=== PATIENT | female | born 2000 | race Caucasian/White ===

== ENCOUNTER 2023-06-01 01:05 | Emergency (ER) | payer OTHER ==
[2023-06-01 01:20] VITALS: BP 123/77; PULSE 75; RESP 18; TEMP 98.3; BMI 30.7
[2023-06-01] MEDS ORDERED: AMOXICILLIN 500 MG CAPSULE (FP) PO ONE (01:22)
[2023-06-01] MEDS ORDERED: ACETAMINOPHEN 325 MG TABLET (FP) PO ONE (01:22)
[2023-06-01] MEDS ORDERED: ACETAMINOPHEN 325 MG TABLET (FP) ONE ×2 (01:28→01:35)
[2023-06-01] MEDS ORDERED: AMOXICILLIN 250 MG CAPSULE ONE (01:29)
== END 2023-06-01 01:41 | disposition home or self-care (01) ==
LOC: FER 01:05
DX: O99.613 Diseases of the digestive system complicating pregnancy, third trimester (principal); K04.7 Periapical abscess without sinus; K08.89 Other specified disorders of teeth and supporting structures; Z3A.00 Weeks of gestation of pregnancy not specified
CPT/HCPCS: 99283-25